=== PATIENT | male | born 1965 | race Hispanic/Latino ===

== ENCOUNTER 2020-12-16 07:47 | Outpatient (CLI) | payer OTHER ==
[2020-12-16] MEDS ORDERED: FUROSEMIDE 20 MG/2 ML INJ ONE (08:22)
[2020-12-16] MEDS ORDERED: FUROSEMIDE 20 MG/2 ML INJ IV ONE (08:57)
--- NOTE | 2020-12-16 10:24 | Cat Scan Report ---
CT ABDOMEN AND PELVIS WITHOUT CONTRAST INDICATION / CLINICAL INFORMATION: CALCULUS OF KIDNEY. TECHNIQUE: Axial CT images were obtained through the abdomen and pelvis without IV contrast. Sagittal and merino l reformatted images. All CT scans at this location are performed using CT dose reduction for ALARA b y means of automated exposure control. COMPARISON: None available. FINDINGS: LOWER CHEST: No significant abnormality. LIVER: No significant abnormality. GALLBLADDER: No significant abnormality. BILE DUCTS: No significant abnormality. PANCREAS: No significant abnormality. SPLEEN: No significant abnormality. ADRENALS: No significant abnormality. RIGHT KIDNEY and URETER: There is a large stone in the right renal pelvis measuring up to 2.7 x 1.9 x 3.1 cm. This results in moderate pyelocaliectasis in the right kidney. A 2 cm calyceal stone is note d near mid pole. There are 2 calyceal stones in the inferior right kidney measuring 1.0 cm and 1.2 cm . There is moderate urothelial thickening in the right renal pelvis and proximal right ureter. Distal ureteral stones are identified. The right kidney is normal size and cortical thickness. A few tiny c ysts are suspected. LEFT KIDNEY and URETER: There is a large stone in the left renal pelvis measuring 3.1 x 2.7 x 1.7 cm. No significant left pyelocaliectasis. There is a large calyceal stone at the superior pole measuring up to 3 cm. There are 5 additional stones in the mid to inferior left kidney measuring from 1 mm to 7 mm. No distal ureteral stones. 1 cm exophytic cyst is noted in the mid left kidney. STOMACH and SMALL BOWEL: No significant abnormality. COLON: No significant abnormality. APPENDIX: No significant abnormality. PERITONEUM: No free fluid. No free air. No fluid collection. LYMPH NODES: No significant adenopathy. AORTA and ARTERIES: No significant abnormality. IVC and VEINS: No significant abnormality. URINARY BLADDER: No significant abnormality. REPRODUCTIVE ORGANS: No significant abnormality. ADDITIONAL FINDINGS: None. SKELETAL SYSTEM: No significant abnormality. IMPRESSION: Bilateral nephrolithiasis as outlined above. Mild to moderate pyelocaliectasis is identified in the r ight kidney. Signer Name: Jim Valenzuela Jr, MD Signed: 12/16/2020 10:19 AM Workstation Name: [id number]
--- NOTE | 2020-12-16 13:13 | Nuclear Medicine Report ---
Renal Scan HISTORY: CALCULUS OF KIDNEY. TECHNIQUE: Patient was given 5.1 mCi of technetium MAG3. The patient was also given 20 mg of Lasix I V 22 minutes into the exam. COMPARISON: CT abdomen/pelvis from today FINDINGS: There is prompt renal parenchymal radiotracer uptake in both kidneys with bilateral retent ion noted, greater on the left. Split function was 57% on the left and 43% on the right. The ERPF was not available on this exam. Time/activity curve for the left kidney has a normal appearance and the time from Lasix injection to half Lasix was 7 on the left (normal) and 20 on the right (abnormal). IMPRESSION: Findings compatible with obstruction on the right with slightly diminished function but again ERPF was not available on this exam. Signer Name: Tera Burton MD Signed: 12/16/2020 1:09 PM Workstation Name: [id number]
== END 2020-12-16 07:48 | disposition home or self-care (01) ==
LOC: CT 07:47
PROVIDERS: ATTEND Urology
DX: N20.0 Calculus of kidney (principal); E78.5 Hyperlipidemia, unspecified; G43.109 Migraine with aura, not intractable, without status migrainosus
CPT/HCPCS: 74176; 78708; A9562; J1940

== ENCOUNTER 2021-05-06 06:48 | Day surgery (SDC) | payer OTHER ==
[2021-05-06] MEDS ORDERED: SODIUM CHLORIDE 0.9% 500 ML 500 ML IV SCH (08:00)
[2021-05-06] MEDS ORDERED: SODIUM CHLORIDE IRRI 500 ML 500 ML IR ONE (09:04)
--- NOTE | 2021-05-06 09:07 | Short Stay Summary ---
Short Stay Documentation Date of service: 05/06/21 - History Principal diagnosis: Bilateral nephrolithiasis Past Medical History: other (Bilateral staghorn calculi, right hydronephrosis) Social history: no significant social history - Allergies and Medications Current Medications: Allergies No Known Allergies Allergy (Verified 02/06/15 13:25) Home Medications Medication Instructions Recorded Confirmed Last Taken Type Apixaban [Eliquis] 5 mg PO BID 05/03/21 05/06/21 04/29/21 History 5 mg Aspirin 81 mg PO QDAY 05/03/21 05/06/21 05/04/21 History 81 mg Atorvastatin [Lipitor Tab] 80 mg PO QHS 05/03/21 05/06/21 05/05/21 History 80 mg Escitalopram [Lexapro] 10 mg PO DAILY 05/03/21 05/06/21 05/05/21 History 10 mg Multivit-Min/FA/Lycopen/Lutein 1 each PO DAILY 05/03/21 05/06/21 05/06/21 History [Centrum Silver Tablet] 1 tab Tamsulosin [Flomax] 0.4 mg PO QDAY 05/03/21 05/06/21 05/05/21 History 0.4mg carvediloL [Coreg] 6.25 mg PO BID 05/03/21 05/06/21 05/06/21 History 6.25mg metFORMIN [Glucophage] 500 mg PO QDAY 05/03/21 05/06/21 05/05/21 History 500 mg Eszopiclone [Lunesta] 3 mg PO QHS 05/05/21 05/06/21 05/05/21 History 3 mg amLODIPine 10 mg PO DAILY 05/06/21 05/06/21 05/06/21 06:00 History 10 mg Active Medications Sodium Chloride (Nacl 0.9% 500 Ml) 500 mls @ 50 mls/hr IV DIRECT MERLE Last Admin: 05/06/21 08:37 Dose: 50 mls/hr Documented by: Levofloxacin/Dextrose (Levaquin 500mg/100ml) 500 mg in 100 mls @ 100 mls/hr IV PREOP NR; Protocol Stop: 05/06/21 18:00 - Physical exam General appearance: no acute distress Integumentary: no rash, no growths HEENT: Atraumatic Lungs: Normal air movement Heart: Regular rate Gastrointestinal: normal Male Genitourinary: deferred Rectal Exam: deferred - Brief post op/procedure progress note Date of procedure: 05/06/21 Pre-op diagnosis: Bilateral nephrolithiasis Post-op diagnosis: same Procedure: Right nephroureteral tube placement using ultrasound and fluoroscopic guidance Anesthesia: local Surgeon: MICHELINE JOSHI Estimated blood loss: none Condition: stable - Disposition Condition at discharge: Good Disposition: DC-01 TO HOME OR SELFCARE Short Stay Discharge Plan Activity: advance as tolerated Weight Bearing Status: Weight Bear as Tolerated Diet: regular Wound: keep clean and dry, per your surgeon's advice Follow up with: RENEE FOSTER MD [Primary Care Provider] - 7 Days
[2021-05-06] MEDS: MIDAZOLAM 2 MG/2 ML INJ ONE ×2 (09:35→09:45)
[2021-05-06] MEDS: fentaNYL 100 MCG/2 ML INJ ONE ×2 (09:35→09:45)
[2021-05-06] MEDS: LIDOCAINE (2%) 20 MG/1 ML VIAL 20 ML MDV INFILTRATI ONE ×2 (09:35→09:47)
--- NOTE | 2021-05-06 10:11 | Operative Report ---
Operative Report Operative Report: Exam: Ultrasound and fluoroscopic guided placement of right nephroureteral tube Clinical indication: Patient with a history of bilateral renal calculi, right hydronephrosis Date: 05/06/2021 Procedure: Following an explanation of the risks, benefits and alternatives; written informed consent was obtained. The patient was brought to the angiographic suite and placed in prone position on the examination table. Initial ultrasound of his right back demonstrated moderate right hydronephrosis. The patient's right back and flank was prepped and draped in the usual sterile fashion. 1% lidocaine was used for anesthesia. Under ultrasound guidance, a 15 cm 21-gauge needle was advanced into a posterior superior calyx of the right kidney. A 0.018 guidewire was then advanced through the needle which demonstrated movement of the calyceal stones. The guidewire was advanced into the region of the renal pelvis and the inner portion of an AccuStick transition dilator placed over the guidewire. Contrast was gently injected which demonstrated appropriate positioning. The 0.018 guidewire was reinserted and the AccuStick reassembled and advanced over the guidewire to position the tip of the AccuStick in the renal pelvis. The guidewire and trocar were removed. Contrast was again injected which demonstrates appropriate positioning and opacification of the proximal ureter. A 0.035 Glidewire was then advanced through the AccuStick transition dilator and manipulated under fluoroscopy to the bladder. The guidewire was coiled within the bladder and the transition dilator removed and a 5 Slovenian pigtail catheter advanced over the guidewire. The pigtail was advanced to the bladder. The guidewire was removed. Contrast was injected through the pigtail catheter which demonstrated appropriate intraluminal positioning within the bladder. The catheter was securely fastened to the skin surface using 2-0 Ethilon suture and capped. The catheter was then coiled and sterile dressings were applied. The patient tolerated the procedure well. There were no immediate postprocedure complications. Conscious sedation was performed under the guidance of radiologic nursing. Continuous cardiopulmonary monitoring was utilized. Impression: Ultrasound and fluoroscopic guided placement of right nephroureteral tube in preparation for patient's laser lithotripsy on Monday.
[2021-05-06 13:28] VITALS: BP 128/77
[2021-05-06] MEDS ORDERED: oxyCODONE /ACETAMINOPHEN 5-325MG TAB PO ONE (13:41)
== END 2021-05-06 13:45 | disposition home or self-care (01) ==
LOC: CATHLABREC 06:48
PROVIDERS: ATTEND Radiology Diagnostic Radiology
DX: N13.2 Hydronephrosis with renal and ureteral calculous obstruction (principal); G43.109 Migraine with aura, not intractable, without status migrainosus; E78.5 Hyperlipidemia, unspecified; Z79.899 Other long term (current) drug therapy; Z79.84 Long term (current) use of oral hypoglycemic drugs; Z79.82 Long term (current) use of aspirin; Z87.440 Personal history of urinary (tract) infections; Z98.890 Other specified postprocedural states; Z82.49 Family history of ischemic heart disease and other diseases of the circulatory system
CPT/HCPCS: 50433; 82962; 99156; C1769; J1956; J2250; J3010; J7040; Q9967

== ENCOUNTER 2021-05-10 06:54 | Observation (INO) | payer OTHER ==
[2021-05-05 10:02] LABS: Hematocrit 38.4 % (35.5-45.6); Hemoglobin 13.1 gm/dl (11.8-15.2); Mean Corpuscular HGB Conc 34 % (32-34); Mean Corpuscular Volume 81 fl (84-94); Platelet Count 218 K/mm3 (140-440); Red Blood Count 4.74 M/mm3 (3.65-5.03); Red Cell Distribution Width 14.6 % (13.2-15.2)
--- NOTE | 2021-05-05 10:20 | Anesthesia Consultation ---
Anesthesia Consult and Med Hx Date of service: 05/05/21 - Airway Anesthetic Teeth Evaluation: Good ROM Head & Neck: Adequate Mental/Hyoid Distance: Adequate Mallampati Class: Class III Intubation Access Assessment: Possibly Difficult - Pulmonary Exam CTA: Yes - Cardiac Exam Cardiac Exam: RRR - Pre-Operative Health Status ASA Pre-Surgery Classification: ASA3 Proposed Anesthetic Plan: General - Pulmonary Hx Smoking: No Hx Respiratory Symptoms: No Hx Sleep Apnea: No (KARL PRE SCREEN HIGH RISK) - Cardiovascular System Hx Hypertension: Yes Hx Heart Attack/AMI: No Hx Percutaneous Transluminal Coronary Angioplasty (PTCA): No Hx Cardia Arrhythmia: No - Central Nervous System 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 States that he has had preop hematology eval; records not currently available for review. Neprhostomy tube placement scheduled for 05/06/21.
[2021-05-05 10:23] LABS: INR 0.93 (0.87-1.13)
[2021-05-05 10:24] LABS: Partial Thromboplastin Time 25.2 Sec. (24.2-36.6)
[2021-05-05 10:26] LABS: Alanine Aminotransferase 20 units/L (7-56); Albumin 4.1 g/dL (3.9-5); Blood Urea Nitrogen 14 mg/dL (9-20); Calcium 10.3 mg/dL (8.4-10.2); Hemolysis Index 15
[2021-05-05 11:07] LABS: BUN/Creatinine Ratio 20
[~2021-05-10 06:54] MED LIST: ACETAMINOPHEN 500 MG TAB PO SCH; GABAPENTIN 300 MG CAP PO NR; LACTATED RINGERS 1,000 ML IV SCH; MIDAZOLAM 2 MG/2 ML INJ IV NR; SCOPOLAMINE TRANSDERMAL PATCH 72 HR TD NR
[2021-05-10] MEDS ORDERED: ONDANSETRON 4 MG/2 ML INJ IV PRN ×2 (08:25→14:30)
[2021-05-10] MEDS ORDERED: HYDROmorphone 1 MG/1 ML INJ IV PRN ×2 (08:25)
--- NOTE | 2021-05-10 08:25 | Anesthesia Day of Surgery ---
Anesthesia Day of Surgery - Day of Surgery Patient Examined: Yes Patient H&P Reviewed: Yes Patient is NPO: Yes
[2021-05-10] MEDS ORDERED: ACETAMINOPHEN IV 1,000 MG/100 ML BOTTLE IV NR (09:15)
[2021-05-10] MEDS ORDERED: MINERAL OIL Light (Sterile) 10 ML VIAL TP ONE ×2 (09:16→11:52)
[2021-05-10] MEDS ORDERED: SODIUM CHLORIDE 0.9% 500 ML 500 ML IV ONE (10:00)
[2021-05-10] MEDS ORDERED: SODIUM CHLORIDE 0.9% IRRIG SOLN 2000 ML IR ONE (11:52)
[2021-05-10] MEDS ORDERED: IOHEXOL 300 MG/ML 50ML IV ONE (11:52)
[2021-05-10] MEDS ORDERED: GLYCOPYRROLATE 0.4 MG/2 ML INJ ONE (12:30)
[2021-05-10] MEDS ORDERED: NEOSTIGMINE 10MG/10 ML INJ MDV ONE (12:30)
[2021-05-10] MEDS ORDERED: NALOXONE 0.4 MG/1 ML INJ IV PRN (13:21)
[2021-05-10] MEDS ORDERED: oxyCODONE /ACETAMINOPHEN 5-325MG TAB PO PRN (13:21)
[2021-05-10] MEDS ORDERED: ACETAMINOPHEN 325 MG TAB PO PRN ×2 (13:21→14:30)
[2021-05-10] MEDS ORDERED: ONDANSETRON 4 MG ODT TAB PO PRN (13:21)
--- NOTE | 2021-05-10 13:21 | Post Operative Note ---
Pre-op diagnosis: stones Post-op diagnosis: same Findings: huge stones Procedure: r perc neph Anesthesia: GETA Surgeon: PPEE HARRIS Estimated blood loss: minimal Pathology: list (stones) Specimen disposition: given to patient/family Condition: stable Disposition: PACU
[2021-05-10] MEDS ORDERED: D5W/0.45% NACL/KCL 20 MEQ 20 MEQ/1,000 ML BAG IV SCH (14:00)
--- NOTE | 2021-05-10 14:47 | Fluoroscopy Report ---
FLUOROSCOPY NEPHROSTOGRAM EXISTING RIGHT HISTORY: Nephrolithiasis FINDINGS: 75 seconds of fluoroscopy time was provided by radiology during right percutaneous nephrost coleman performed by urology. 3 fluoroscopic images are presented. Please correlate with the operative re port as needed. Signer Name: Jim Valenzuela Jr, MD Signed: 05/10/2021 2:43 PM Workstation Name: [id number]
[2021-05-10] MEDS: ceFAZolin/NS 1 GM/50 ML 1 GM/50 ML BAG IV SCH (17:04)
--- NOTE | 2021-05-10 19:54 | Post Anesthesia Evaluation ---
- Post Anesthesia Evaluation Patient Participated: Yes Airway Patent: Yes Stable Respiratory Function: Yes Nausea/Vomiting: No Temp > 96.8F: Yes Pain Manageable: Yes Adequeate Hydration: Yes Anesthesia Complications: No Block Receding Appropriately: Not Applicable Patient on Ventilator: No
[2021-05-10 19:57] LABS: Blood Urea Nitrogen 8 mg/dL (9-20); Calcium 9.5 mg/dL (8.4-10.2); Hemolysis Index 15
[2021-05-10 20:10] LABS: BUN/Creatinine Ratio 11
[2021-05-10 20:14] LABS: Hematocrit 39.6 % (35.5-45.6); Hemoglobin 13.3 gm/dl (11.8-15.2); Mean Corpuscular HGB Conc 34 % (32-34); Mean Corpuscular Volume 81 fl (84-94); Platelet Count 218 K/mm3 (140-440); Red Blood Count 4.87 M/mm3 (3.65-5.03); Red Cell Distribution Width 14.8 % (13.2-15.2)
[2021-05-10] MEDS: FAMOTIDINE 20 MG/2 ML INJ IV SCH (22:00)
[2021-05-10] MEDS: oxyCODONE /ACETAMINOPHEN 5-325MG TAB PO PRN (23:24)
--- NOTE | 2021-05-11 00:25 | Operative Report ---
DATE OF SURGERY: 05/10/2021 PREOPERATIVE DIAGNOSES: Huge bilateral stones, renal insufficiency. POSTOPERATIVE DIAGNOSES: Huge bilateral stones, renal insufficiency. PROCEDURE: Right percutaneous nephrolithotomy. SURGEON: Nir Brannon MD. ANESTHESIA: General. FINDINGS: This is a gentleman with huge stones bilaterally, less functionality on the left side, now presents for treatment. DESCRIPTION OF PROCEDURE: The patient was brought to the operating room and placed on the operating table. Following induction of anesthesia, Silveira catheter was placed, placed in the prone position, prepped and draped in usual sterile fashion. Over the wire, an Amplatz wire was placed through the nephroureteral stent. This was initially opened up a little bit with a knife and a hemostat and then we placed the snake under fluoroscopic guidance. A safety wire set was placed and a second wire was secured in the bladder. At this point, we dilated to 16-Sami and it was a straight shot, so we used the balloon to 30-Sami. We placed a 28 Amplatz without difficulty after dilating it up to 30. Flexible nephroscopy showed the stone and using the nephroscope, we broke it into many, many pieces. Initially, the ultrasound did not work and when we got it working, we were able to suction out most of the little gravel. The patient tolerated the procedure well. A [place] catheter was placed at the UPJ. We did not inflate the balloon. We secured it with 2 silk. The wire was then placed. The patient tolerated the procedure well, no significant complications. Minimal blood loss, brought to recovery in stable condition. TID: [id number] RECEIPT: [id number] GIOVANNA/ABEBE/MANOHAR
[2021-05-11] MEDS: ceFAZolin/NS 1 GM/50 ML 1 GM/50 ML BAG IV SCH ×2 (04:12→06:00)
[2021-05-11] MEDS: oxyCODONE /ACETAMINOPHEN 5-325MG TAB PO PRN (07:53)
[2021-05-11] MEDS: FAMOTIDINE 20 MG/2 ML INJ IV SCH (10:46)
[2021-05-11 11:34] VITALS: BP 149/86
--- NOTE | 2021-05-11 12:57 | Progress Note ---
Assessment and Plan wire out tube clear 'looks grat mckeon out Subjective Date of service: 05/11/21 Principal diagnosis: stones Objective - Constitutional Vitals: Vital Signs - 12hr 05/11/21 05/11/21 05/11/21 03:52 05:03 07:53 Temperature 99.1 F Pulse Rate 99 H Respiratory 18 17 Rate Blood Pressure 117/72 O2 Sat by Pulse 97 91 Oximetry 05/11/21 05/11/21 05/11/21 08:33 09:40 11:07 Temperature 97.9 F 98.5 F Pulse Rate 82 86 Respiratory 18 18 Rate Blood Pressure 133/79 149/86 O2 Sat by Pulse 92 92 92 Oximetry General appearance: Present: other - Neck Neck: supple - Respiratory Respiratory effort: normal - Cardiovascular Rhythm: regular Extremities: no ischemia - Gastrointestinal General gastrointestinal: Present: soft, non-tender - Labs CBC & Chem 7: 05/10/21 19:31 05/10/21 19:31 Labs: Abnormal lab results 05/10/21 05/10/21 05/10/21 Range/Units 08:30 19:31 19:31 MCV 81 L (84-94) fl MCH 27 L (28-32) pg BUN 8 L (9-20) mg/dL Creatinine 0.7 L (0.8-1.3) mg/dL Glucose 145 H (75-100) mg/dL POC Glucose (70-105) mg/dL Crossmatch See Detail 05/11/21 05/11/21 Range/Units 08:31 11:06 MCV (84-94) fl MCH (28-32) pg BUN (9-20) mg/dL Creatinine (0.8-1.3) mg/dL Glucose (75-100) mg/dL POC Glucose 177 H 160 H (70-105) mg/dL Crossmatch Medications & Allergies - Medications Allergies/Adverse Reactions: Allergies No Known Allergies Allergy (Verified 02/06/15 13:25) Home Medications: Home Medications Medication Instructions Recorded Confirmed Last Taken Type Apixaban [Eliquis] 5 mg PO BID 05/03/21 05/10/21 04/30/21 09:00 History Aspirin 81 mg PO QDAY 05/03/21 05/10/21 05/05/21 09:00 History Atorvastatin [Lipitor Tab] 80 mg PO QHS 0705/10/21 05/09/21 20:00 History Escitalopram [Lexapro] 10 mg PO DAILY 05/03/21 05/10/21 05/09/21 09:00 History Multivit-Min/FA/Lycopen/Lutein 1 each PO DAILY 05/03/21 05/06/21 05/06/21 History [Centrum Silver Tablet] 1 tab Tamsulosin [Flomax] 0.4 mg PO QDAY 05/03/21 05/10/21 05/09/21 09:00 History carvediloL [Coreg] 6.25 mg PO BID 05/03/21 05/10/21 05/10/21 05:00 History metFORMIN [Glucophage] 500 mg PO QDAY 05/03/21 05/10/21 05/09/21 09:00 History Eszopiclone [Lunesta] 3 mg PO QHS 05/05/21 05/06/21 05/05/21 History 3 mg levoFLOXacin [Levaquin TAB] 500 mg PO QDAY #7 tablet 05/06/21 Unknown Rx oxyCODONE /ACETAMINOPHEN [Percocet 1 tab PO Q6HR PRN #25 tablet 05/06/21 Unknown Rx 5/325] amLODIPine 10 mg PO DAILY 05/10/21 05/10/21 05/09/21 09:00 History Active Medications: Generic Name Dose Route Start Last Admin Trade Name Freq PRN Reason Stop Dose Admin Acetaminophen 650 mg 05/10/21 14:30 Acetaminophen 325 Mg Tab PO Q4H PRN Pain MILD(1-3)/Fever >100.5/LERNER Famotidine 20 mg 05/10/21 22:00 05/11/21 10:46 Famotidine 20 Mg/2 Ml Inj IV 20 mg BID MERLE Administration Potassium Chloride/Dextrose/Sod Cl 20 meq in 1,000 mls @ 125 mls/hr 05/10/21 14:00 D5w/0.45% Nacl/Kcl 20 Meq IV DIRECT MERLE Cefazolin Sodium 1 gm in 50 mls @ 100 mls/hr 05/10/21 14:00 05/11/21 06:00 Ancef/Ns 1 Gm/50 Ml IV 05/11/21 14:29 Not Given Q8H MERLE Protocol Naloxone HCl 0.1 mg 05/10/21 13:21 Naloxone 0.4 Mg/1 Ml Inj IV Q2MIN PRN Res Rate </= 8 or 02 SAT < 92% Ondansetron HCl 4 mg 05/10/21 13:21 Ondansetron 4 Mg Odt Tab PO Q8H PRN Nausea And Vomiting Ondansetron HCl 4 mg 05/10/21 14:30 Ondansetron 4 Mg/2 Ml Inj IV Q8H PRN Nausea And Vomiting Oxycodone/Acetaminophen 1 tab 05/10/21 14:30 05/11/21 07:53 Oxycodone /Acetaminophen 5-325mg Tab PO 1 tab Q6H PRN Administration Pain, Moderate (4-6) Sodium Chloride 10 ml 05/10/21 22:00 05/11/21 10:48 Sodium Chloride 0.9% 10 Ml Flush Syringe IV 10 ml BID MERLE Administration Sodium Chloride 10 ml 05/10/21 14:09 Sodium Chloride 0.9% 10 Ml Flush Syringe IV PRN PRN LINE FLUSH
--- NOTE | 2021-05-11 12:59 | Discharge Summary ---
Short Stay Discharge Plan Activity: other (no straining ) Weight Bearing Status: Full Weight Bearing Diet: low fat, low cholesterol Wound: change dressing Special Instructions: other (neph tube care ) Durable Medical Equipment Needed Upon Discharge: other (as above) Follow up with: RENEE FOSTER MD [Primary Care Provider] - 7 Days PEPE HARRIS MD [Staff Physician] - 14 Days
== END 2021-05-11 17:00 | disposition home or self-care (01) ==
LOC: OR 06:54 → 3A 14:09 → 3B-SURG 20:01
PROVIDERS: ADMIT Urology; ATTEND Urology
DX: N20.0 Calculus of kidney (principal); I10 Essential (primary) hypertension; E11.9 Type 2 diabetes mellitus without complications; E78.00 Pure hypercholesterolemia, unspecified; G43.909 Migraine, unspecified, not intractable, without status migrainosus; G47.33 Obstructive sleep apnea (adult) (pediatric); Z79.82 Long term (current) use of aspirin; Z79.84 Long term (current) use of oral hypoglycemic drugs; Z87.440 Personal history of urinary (tract) infections; Z79.899 Other long term (current) drug therapy; Z98.890 Other specified postprocedural states
CPT/HCPCS: 36415; 50081; 50431; 80048; 80053; 82962; 85025; 85027; 85610; 85730; 86850; 86900; 86901; 86920; 96365; 96366; 96375; 96376; A4217; C1726; C1769; G0378; J0690; J2710; Q9967

== ENCOUNTER 2021-05-26 11:12 | Day surgery (SDC) | payer OTHER ==
[2021-05-26] MEDS ORDERED: MINERAL OIL Light (Sterile) 10 ML VIAL TP ONE (12:34)
[2021-05-26] MEDS ORDERED: HYDROmorphone 1 MG/1 ML INJ IV PRN ×2 (13:00)
[2021-05-26] MEDS ORDERED: MIDAZOLAM 2 MG/2 ML INJ IV NR (13:00)
[2021-05-26] MEDS ORDERED: LACTATED RINGERS 1,000 ML IV SCH (13:00)
[2021-05-26] MEDS ORDERED: ONDANSETRON 4 MG/2 ML INJ IV PRN (13:00)
--- NOTE | 2021-05-26 13:01 | Anesthesia Day of Surgery ---
Anesthesia Day of Surgery - Day of Surgery Patient Examined: Yes Patient H&P Reviewed: Yes Patient is NPO: Yes
--- NOTE | 2021-05-26 13:04 | Anesthesia Consultation ---
Anesthesia Consult and Med Hx Date of service: 05/26/21 - Airway Anesthetic Teeth Evaluation: Good ROM Head & Neck: Adequate Mental/Hyoid Distance: Adequate Mallampati Class: Class III Intubation Access Assessment: Probably Good - Pre-Operative Health Status ASA Pre-Surgery Classification: ASA3 Proposed Anesthetic Plan: General - Pulmonary Hx Smoking: No Hx Asthma: No Hx Respiratory Symptoms: No COPD: No Hx Pneumonia: No Hx Sleep Apnea: No (KARL PRE SCREEN HIGH RISK) - Cardiovascular System Hx Hypertension: Yes Hx Coronary Artery Disease: No Hx Heart Attack/AMI: No Hx Angina: No Hx Percutaneous Transluminal Coronary Angioplasty (PTCA): No Hx Cardia Arrhythmia: No Hx Pacemaker: No Hx Valvular Heart Disease: No Hx Heart Murmur: No Hx Peripheral Vascular Disease: No - Central Nervous System CVA: 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 H factor V leiden currently on Eliquis and ASA. States that he has had preop hematology eval.
[2021-05-26] MEDS ORDERED: propofoL 200 MG/20 ML VIAL IV ONE ×2 (13:38→14:26)
[2021-05-26] MEDS ORDERED: LIDOCAINE MPF (2%) 20 MG/1 ML VIAL 5 ML ONE (13:38)
[2021-05-26] MEDS ORDERED: ROCURONIUM 50 MG/5 ML INJ IV ONE (13:38)
[2021-05-26] MEDS ORDERED: fentaNYL 100 MCG/2 ML INJ ONE ×2 (13:39→14:30)
[2021-05-26] MEDS ORDERED: ceFAZolin/Water 2 GM/20 ML 2 GM/20 ML SYRINGE IV ONE (13:41)
[2021-05-26] MEDS ORDERED: ceFAZolin/STERILE WATER 2 GM/20 ML SYRINGE IV NR (14:00)
[2021-05-26] MEDS ORDERED: ePHEDrine SULFATE 50 MG/1 ML INJ ONE (14:22)
[2021-05-26] MEDS ORDERED: LIDOCAINE PF 100 MG/5 ML (CARDIAC SYRINGE) IV ONE (14:25)
[2021-05-26] MEDS ORDERED: IOHEXOL 300 MG/ML 50ML IV ONE (14:41)
[2021-05-26] MEDS ORDERED: WATER FOR IRRIG STERILE 1,500 ML BOTTLE IR ONE (14:41)
[2021-05-26] MEDS ORDERED: WATER FOR IRRIG STERILE 2000 ML IR ONE (14:41)
[2021-05-26] MEDS ORDERED: dexAMETHasone 20 MG/5 ML VIAL ONE (14:54)
[2021-05-26] MEDS ORDERED: ONDANSETRON 4 MG/2 ML INJ ONE (14:54)
[2021-05-26] MEDS ORDERED: GLYCOPYRROLATE 0.4 MG/2 ML INJ ONE (14:54)
[2021-05-26] MEDS ORDERED: NEOSTIGMINE 10MG/10 ML INJ MDV ONE (14:54)
[2021-05-26] MEDS ORDERED: FUROSEMIDE 40 MG/4 ML INJ ONE (15:24)
--- NOTE | 2021-05-26 15:28 | Post Operative Note ---
Date of procedure: 05/26/21 Pre-op diagnosis: huge bilat stones Post-op diagnosis: same Findings: as above Procedure: second stage r perc Anesthesia: GETA Surgeon: PEPE HARRIS Estimated blood loss: minimal Pathology: list (stones) Specimen disposition: to lab Condition: stable Disposition: PACU
--- NOTE | 2021-05-26 15:30 | Discharge Summary ---
Short Stay Discharge Plan Activity: other (no strainingv ) Weight Bearing Status: Full Weight Bearing Diet: low fat, low cholesterol Wound: change dressing Special Instructions: other (perc tube plugged ) Follow up with: RENEE FOSTER MD [Primary Care Provider] - 7 Days PEPE HARRIS MD [Staff Physician] - 7 Days
--- NOTE | 2021-05-26 15:56 | Operative Report ---
DATE OF SURGERY: 05/26/2021 PREOPERATIVE DIAGNOSIS: Huge bilateral renal stone burden. POSTOPERATIVE DIAGNOSIS: Huge bilateral renal stone burden. PROCEDURE: Second-stage percutaneous nephrolithotomy. SURGEON: Nir Brannon MD ANESTHESIA: General. FINDINGS: This is a gentleman with huge stone burden bilaterally. Most of the stone was removed a couple of weeks ago, he now presents for second stage. DESCRIPTION OF PROCEDURE: The patient was brought to the operating room and placed on the operating table. Following induction of anesthesia, placed in the prone position, prepped and draped in the usual sterile fashion. Using the flexible scope, we found multiple upper ureteral stones, which were extracted and lasered. A wire was secured in the bladder. Then, we placed a double-J stent, which was 6-Bahamian coiled in the kidney. It looked like it went around the balloon. It was in the bladder. At this point, there were large stones that were extracted after lasering pieces. The patient tolerated the procedure well. He will be discharged after voiding. Silveira catheter will be removed. The nephrostomy tube is intact, secured and plugged. He was brought to recovery room with minimal blood loss in stable condition. TID: [id number] RECEIPT: [id number] GIOVANNA/ELIAN/CECE
--- NOTE | 2021-05-26 17:30 | Fluoroscopy Report ---
INTRAOPERATIVE FLUOROSCOPY: URETEROSCOPY, STENT PLACEMENT, STONE EXTRACTION INDICATION: RT KIDNEY STONES. TECHNIQUE: Intraoperative spot images were obtained during the procedure. FINDINGS: These images show access of the right renal collecting system percutaneously with injection of contra st followed by placement of a right ureteral stent. See procedure note for details. Fluoroscopy Time: 1.2 minutes. Fluoroscopy Images: 8. Signer Name: Albert Parnell MD Signed: 05/26/2021 5:26 PM Workstation Name: [id number]
[2021-05-26 18:10] VITALS: BP 146/73
== END 2021-05-26 17:15 | disposition home or self-care (01) ==
LOC: OR 11:12
PROVIDERS: ATTEND Urology
DX: N20.0 Calculus of kidney (principal); I10 Essential (primary) hypertension; E66.9 Obesity, unspecified; E78.5 Hyperlipidemia, unspecified; N39.0 Urinary tract infection, site not specified; G43.109 Migraine with aura, not intractable, without status migrainosus; Z79.82 Long term (current) use of aspirin; Z79.899 Other long term (current) drug therapy; Z98.890 Other specified postprocedural states
CPT/HCPCS: 50431; 52356; 82962; 86850; 86900; 86901; A4217; C1769; C2617; J0690; J1100; J1940; J2250; J2405; J2704; J2710; J3010; J7120; Q9967; J2001

== ENCOUNTER 2021-05-29 18:56 | Emergency (ER) | payer OTHER ==
[2021-05-30 02:18] VITALS: BP 150/86
== END 2021-05-30 02:52 | disposition home or self-care (01) ==
LOC: ED 18:56
DX: Z43.6 Encounter for attention to other artificial openings of urinary tract (principal); I10 Essential (primary) hypertension; E11.8 Type 2 diabetes mellitus with unspecified complications; Z87.442 Personal history of urinary calculi; G43.909 Migraine, unspecified, not intractable, without status migrainosus; E78.00 Pure hypercholesterolemia, unspecified; Z98.890 Other specified postprocedural states
CPT/HCPCS: 36415; 80053; 85025; 99283

== ENCOUNTER 2021-11-18 07:17 | Day surgery (SDC) | payer OTHER ==
[2021-11-18] MEDS ORDERED: SODIUM CHLORIDE 0.9% 500 ML 500 ML IV SCH (08:00)
[2021-11-18 08:05] LABS: Basophils % (Auto) 0.6 % (0.0-1.8); Eosinophils # (Auto) 0.2 K/mm3 (0.0-0.4); Eosinophils % (Auto) 3.1 % (0.0-4.3); Hematocrit 39.8 % (35.5-45.6); Hemoglobin 12.9 gm/dl (11.8-15.2); Lymphocytes # (Auto) 1.8 K/mm3 (1.2-5.4); Lymphocytes % (Auto) 28.5 % (13.4-35.0); Mean Corpuscular HGB Conc 33 % (32-34); Mean Corpuscular Volume 82 fl (84-94); Monocytes # (Auto) 0.5 K/mm3 (0.0-0.8); Monocytes % (Auto) 8.4 % (0.0-7.3); Platelet Count 203 K/mm3 (140-440); Red Blood Count 4.88 M/mm3 (3.65-5.03); Red Cell Distribution Width 13.8 % (13.2-15.2)
[2021-11-18 08:15] LABS: BUN/Creatinine Ratio 23; Blood Urea Nitrogen 18 mg/dL (9-20); Calcium 10.1 mg/dL (8.4-10.2); Hemolysis Index 21; INR 0.85 (0.87-1.13)
--- NOTE | 2021-11-18 08:43 | Short Stay Summary ---
Short Stay Documentation Date of service: 11/18/21 - History Principal diagnosis: Left flank pain, left nephrolithiasis, staghorn calculus Past Medical History: other (Prior right nephrolithiasis) Past Surgical History: Other (Right percutaneous laser lithotripsy) Social history: no significant social history - Allergies and Medications Current Medications: Allergies No Known Allergies Allergy (Verified 02/06/15 13:25) Home Medications Medication Instructions Recorded Confirmed Last Taken Type Apixaban [Eliquis] 5 mg PO BID 05/03/21 11/18/21 11/11/21 History 2 TABS Aspirin 81 mg PO QDAY 05/03/21 11/18/21 11/11/21 History 1 TAB Atorvastatin [Lipitor Tab] 80 mg PO QHS 05/03/21 11/18/21 11/17/21 History 1 TAB Escitalopram [Lexapro] 10 mg PO DAILY 05/03/21 11/18/21 11/17/21 History 1 TAB Multivit-Min/FA/Lycopen/Lutein 1 each PO DAILY 05/03/21 11/18/21 05/06/21 History [Centrum Silver Tablet] 1 tab Tamsulosin [Flomax] 0.4 mg PO QDAY 05/03/21 11/18/21 11/17/21 History 1 TAB carvediloL [Coreg] 6.25 mg PO BID 05/03/21 11/18/21 11/17/21 History 2 TABS metFORMIN [Glucophage] 500 mg PO BID 05/03/21 11/18/21 11/15/21 History 2 TABS Eszopiclone [Lunesta] 3 mg PO QHS 05/05/21 11/18/21 11/17/21 History 1 TAB amLODIPine 10 mg PO DAILY 05/10/21 11/18/21 05/09/21 09:00 History Losartan [Cozaar] 50 mg PO QDAY 05/25/21 11/18/21 11/17/21 History 1 TAB Active Medications Sodium Chloride (Nacl 0.9% 500 Ml) 500 mls @ 50 mls/hr IV DIRECT MERLE Stop: 11/18/21 20:00 - Physical exam General appearance: no acute distress Integumentary: no rash HEENT: Atraumatic Lungs: Normal air movement Breasts: deferred Heart: Regular rate Male Genitourinary: deferred Rectal Exam: deferred Neurological: Normal gait, Normal speech - Brief post op/procedure progress note Date of procedure: 11/18/21 Pre-op diagnosis: Left nephrolithiasis Post-op diagnosis: same Procedure: Placement of left nephroureteral stent using ultrasound and fluoroscopic guidance Anesthesia: local Surgeon: MICHELINE JOSHI Pathology: none Condition: stable - Disposition Condition at discharge: Good Disposition: 01 HOME / SELF CARE / HOMELESS Short Stay Discharge Plan Activity: advance as tolerated Weight Bearing Status: Weight Bear as Tolerated Diet: regular Wound: keep clean and dry, per your surgeon's advice Follow up with: RENEE FOSTER MD [Primary Care Provider] - 7 Days
[2021-11-18] MEDS ORDERED: SODIUM CHLORIDE IRRI 500 ML 500 ML IR ONE ×2 (08:56→10:30)
[2021-11-18] MEDS ORDERED: LIDOCAINE 1%/EPINEPHRINE 1:100,000 VIAL (20 ML) INFILTRATI ONE (08:58)
[2021-11-18] MEDS ORDERED: SODIUM CHLORIDE 0.9% 250ML 250 ML ONE (09:00)
--- NOTE | 2021-11-18 09:10 | Cat Scan Report ---
CT OF THE ABDOMEN AND PELVIS WITHOUT CONTRAST INDICATION / CLINICAL INFORMATION: Abdominal pain. TECHNIQUE: All CT scans at this location are performed using CT dose reduction for ALARA by means of automated exposure control. COMPARISON: 12/16/20. FINDINGS: ABDOMEN: There is a 2.3 cm ovoid calculus in the left renal pelvis which measures 1238 [address] ts. There is a 3.2 cm calculus in the upper pole of the left kidney which measures 15[address] un its. There are a few other small scattered left renal calculi. There is a 9 mm calculus in the lower pole of the right kidney. The left renal pelvis is extrarenal and mildly dilated without significant caliectasis. There is a mildly prominent extrarenal pelvis on the right. There is minimal caliectasis on the right, likely chronic. I do not identify a proximal ureteral calculus. There are small simple cyst-appearing renal lesions bilaterally. The liver, spleen, gallbladder, bile ducts, pancreas, adrenal glands and bowel demonstrate no signifi cant abnormality. There are moderate atherosclerotic calcifications involving the abdominal aorta and its branches without aneurysm. No adenopathy is seen. The lung bases are clear. PELVIS: There is a 7 mm mildly irregular calculus in the distal left ureter located a couple of centi meters above the ureterovesical junction. There is mild to moderate localized ureterectasis above the level of the calculus in the pelvis. The distal right ureter and urinary bladder are normal. The pro state gland and seminal vesicles are unremarkable. A normal appendix is present. There is no evidence of diverticulitis. No abnormal mass or fluid colle ction is seen. I do not identify a hernia. No acute osseous abnormality is seen. IMPRESSION: 1. 7 mm calculus in the distal left ureter is causing mild to moderate upstream ureterectasis. Large calculus in the left renal pelvis is not causing significant evidence of obstruction at this time, bu t could be a cause for intermittent or low grade obstruction. 2. Bilateral nonobstructive calculi, the largest of which measures 3.2 cm in the left upper pole. Signer Name: Irvin Jones MD Signed: 11/18/2021 9:06 AM Workstation Name: [employer]
[2021-11-18] MEDS ORDERED: LIDOCAINE (2%) 20 MG/1 ML VIAL 20 ML MDV INFILTRATI ONE (09:12)
[2021-11-18] MEDS: MIDAZOLAM 2 MG/2 ML INJ ONE ×2 (09:53→10:11)
[2021-11-18] MEDS: fentaNYL 100 MCG/2 ML INJ ONE ×3 (09:53→10:37)
[2021-11-18] MEDS ORDERED: MIDAZOLAM 2 MG/2 ML INJ ONE (10:41)
--- NOTE | 2021-11-18 11:13 | Operative Report ---
Operative Report Operative Report: Exam: Ultrasound and fluoroscopic guided placement of nephro ureteral tube Clinical indication: Patient with a history of left flank pain, large left pelvic nephrolithiasis with upper pole calyceal nephrolithiasis Date: 11/18/2021 Procedure: Following an explanation of the risks, benefits and alternatives; hunter smith informed consent was obtained. The patient was brought to the angiographic suite and placed in supine position on the examination table.. The patient's left back and flank were prepped and draped in the usual sterile fashion. 1% lidocaine was used for anesthesia. Initially, attempts to access the kidney were performed using ultrasound guidance however, the kidney is nondilated with a stone filling the pelvis. A decision was made to attempt to perform percutaneous access using fluoroscopic guidance directed towards the stone to opacify the calyces and allow a second puncture into a calyx. Ultimately, using a combination of fluoroscopic guidance and ultrasound guidance the kidney was punctured and contrast injected which opacified multiple calyces. There is also opacification of a superior calyx which extends towards the upper pole calyceal stone. With opacification of the middle calyx, fluoroscopic triangulated guidance was performed to advance a 15 cm 21-gauge needle into the calyx. A 0.018 guidewire was advanced through the calyx past the obstructing stone and coiled within the pelvis. The inner portion of the transition dilator was then placed over the guidewire and advanced and the guidewire and trocar removed. Contrast was injected which demonstrates appropriate positioning. The 018 guidewire was advanced through the dilator, coiled within the pelvis and the dilator removed and reassembled completely. The entire transition dilator was then placed over the guidewire and advanced to position the tip of the transition dilator within the renal pelvis. The trocar, and her portion and guidewire were removed. A 0.035 guidewire was advanced through the transition dilator into the ureter and ultimately to the bladder. At the ureterovesicular junction, 1/3 stone is identified nearly occluding the UVJ. The guidewire was advanced past the stone. The dilator was removed and a vertebral catheter advanced over the guidewire past the stone and contrast injected to document appropriate positioning within the bladder. The guidewire was exchanged for an advantage guidewire and the vertebral catheter removed. A 90 cm pigtail catheter was then advanced over the guidewire and positioned with the pigtail within the bladder and the catheter extending up the ureter past the stone out the middle calyx. Contrast was injected through the second access to document appropriate positioning in the second access removed. The catheter was securely fastened to the skin surface using 2-0 Ethilon suture. The catheter was then coiled and capped and a sterile dressing applied. The patient tolerated the procedure well. There were no immediate post procedure complications. Conscious sedation was performed under the guidance of radiologic nursing. Continuous cardiopulmonary monitoring was utilized. Impression: Ultrasound and fluoroscopic guided placement of nephroureteral tube in anticipation of percutaneous laser lithotripsy to be performed on Monday.
[2021-11-18] MEDS ORDERED: oxyCODONE /ACETAMINOPHEN 5-325MG TAB ONE (13:16)
[2021-11-18] MEDS ORDERED: oxyCODONE /ACETAMINOPHEN 5-325MG TAB PO ONE (14:00)
[2021-11-18 15:33] VITALS: BP 138/82
== END 2021-11-18 07:18 | disposition home or self-care (01) ==
LOC: CATHLABREC 07:17
PROVIDERS: ATTEND Radiology Diagnostic Radiology
DX: N20.0 Calculus of kidney (principal); G43.109 Migraine with aura, not intractable, without status migrainosus; I10 Essential (primary) hypertension; E78.5 Hyperlipidemia, unspecified; N39.0 Urinary tract infection, site not specified; M19.90 Unspecified osteoarthritis, unspecified site; F31.9 Bipolar disorder, unspecified; F41.9 Anxiety disorder, unspecified; Z98.890 Other specified postprocedural states; Z79.899 Other long term (current) drug therapy; Z79.82 Long term (current) use of aspirin; Z86.73 Personal history of transient ischemic attack (TIA), and cerebral infarction without residual deficits; Z82.49 Family history of ischemic heart disease and other diseases of the circulatory system
CPT/HCPCS: 36415; 50433; 74176; 80048; 85025; 85610; 99156; 99157; C1751; C1769; J1956; J2250; J3010; J3490; J7050; Q9967

== ENCOUNTER 2021-11-22 07:20 | Observation (INO) | payer OTHER ==
[2021-11-22] MEDS ORDERED: LACTATED RINGERS 1,000 ML ONE ×2 (08:07→12:29)
--- NOTE | 2021-11-22 08:51 | Anesthesia Day of Surgery ---
Anesthesia Day of Surgery - Day of Surgery Patient Examined: Yes Patient H&P Reviewed: Yes Patient is NPO: Yes Beta Blockers: Yes
--- NOTE | 2021-11-22 08:54 | Anesthesia Consultation ---
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,MEMORY DEFICIT) Hx Psychiatric Problems: Yes (EASY TO ANGER/AGITATION SINCE CVA/Anxiety/Bipolar) - Gastrointestinal Hx Ulcer: No Hx Gastroesophageal Reflux Disease: No - Endocrine Hx Renal Disease: No (renal stones) Hx End Stage Renal Disease: No Hx Cirrhosis: No Hx Liver Disease: No Hx Insulin Dependent Diabetes: No Hx Non-Insulin Dependent Diabetes: Yes Hx Thyroid Disease: No Hx Hypothyroidism: No Hx Hyperthyroidism: No - Hematic Hx Anemia: No - Other Systems Hx Alcohol Use: No Hx Cancer: No Hx Obesity: Yes (BMI 33) - Additional Comments Anesthesia Medical History Comments: Was here [id number] and [id number]. PMH factor V leiden currently on Eliquis and ASA. States that he has had preop hematology eval last year.
[2021-11-22] MEDS ORDERED: ceFAZolin/Water 2 GM/20 ML 2 GM/20 ML SYRINGE IV NR (09:00)
[2021-11-22] MEDS ORDERED: HYDROmorphone 1 MG/1 ML INJ IV PRN ×2 (09:00)
[2021-11-22] MEDS ORDERED: SODIUM CHLORIDE 0.9% 500 ML 500 ML IV SCH (09:00)
[2021-11-22] MEDS: LACTATED RINGERS 1,000 ML IV SCH ×2 (09:00→16:19)
[2021-11-22] MEDS ORDERED: ONDANSETRON 4 MG/2 ML INJ IV PRN (09:00)
[2021-11-22] MEDS ORDERED: propofoL 200 MG/20 ML VIAL IV ONE (10:08)
[2021-11-22] MEDS ORDERED: ROCURONIUM 50 MG/5 ML INJ IV ONE (10:08)
[2021-11-22] MEDS ORDERED: LIDOCAINE MPF (2%) 20 MG/1 ML VIAL 5 ML ONE (10:08)
[2021-11-22] MEDS ORDERED: fentaNYL 100 MCG/2 ML INJ ONE (10:08)
[2021-11-22] MEDS ORDERED: MINERAL OIL Light (Sterile) 10 ML VIAL TP ONE ×2 (10:37→11:48)
[2021-11-22] MEDS ORDERED: ePHEDrine SULFATE 50 MG/1 ML INJ ONE (11:16)
[2021-11-22] MEDS ORDERED: GLYCOPYRROLATE 0.4 MG/2 ML INJ ONE (12:20)
[2021-11-22] MEDS ORDERED: NEOSTIGMINE 10MG/10 ML INJ MDV ONE (12:20)
[2021-11-22] MEDS ORDERED: ONDANSETRON 4 MG/2 ML INJ ONE (12:20)
[2021-11-22] MEDS ORDERED: dexAMETHasone 20 MG/5 ML VIAL ONE (12:20)
[2021-11-22] MEDS ORDERED: SODIUM CHLORIDE 0.9% IRRIG SOLN 2000 ML IR ONE (12:30)
[2021-11-22] MEDS ORDERED: FUROSEMIDE 40 MG/4 ML INJ ONE (12:36)
--- NOTE | 2021-11-22 12:45 | Post Operative Note ---
Date of procedure: 11/22/21 Pre-op diagnosis: huge stones Post-op diagnosis: same Findings: asd above Procedure: left perc neph stent Anesthesia: GETA Surgeon: PEPE HARRIS Estimated blood loss: 50-100ml Pathology: list (stones) Specimen disposition: to lab Condition: stable Disposition: PACU
[2021-11-22] MEDS ORDERED: ACETAMINOPHEN 325 MG TAB PO PRN (14:00)
--- NOTE | 2021-11-22 15:00 | Operative Report ---
DATE OF SURGERY: 11/22/2021 PREOPERATIVE DIAGNOSIS: Huge bilateral staghorn. POSTOPERATIVE DIAGNOSIS: Huge bilateral staghorn PROCEDURES: Left percutaneous nephrolithotomy, left double-J stent. SURGEON: Dr. Nir Brannon. ANESTHESIA: General. FINDINGS: This is a gentleman who had a progressive hydronephrosis on the left and the most recent scan, he also has a distal stone in the left ureter. He has a huge stone at the left UPJ as well and was going to lose his kidney if we did not treat him. The right kidney looks amazing. DESCRIPTION OF PROCEDURE: The patient was brought to the operating room and placed on the operating table. Following induction of anesthesia, placed in the prone position, prepped and draped in usual sterile fashion after the Silveira was placed. He was prepped and we were ready for the percutaneous procedure. The patient was aware of all risks and implications as well as on the previous right side. A rigid Amplatz wire coiled in the bladder and we used the snake to place a safety wire in. The safety wire was secured. We started the dilator to 12, to 14, to 16 and even with the first dilator, there was some oozing from the nephrostomy tube tract. Likely, it was not such a simple procedure to place the access because of the huge sizes of the stone and getting by the stone. At this point, once we dilated to 18, we used the balloon. There was mild bleeding from the tract. Nothing that was not controlled with the dilators and we dilated up to 30-Slovak and ended up placing a 26 sheath. The entire tract and collecting system had lots of clots that had to be evacuated out. We can then start to see the stone. Using the ultrasound and lithoclast, we broke the stone into 100 of pieces and suctioned it out as best as possible. Again, this was a round clot. Finally, the stone was all broken up. There were some pieces, but there was so many clots that we decided to just come back on another day because we have to approach the distal stone in the ureter as well. A 5-Slovak stent coiled in the kidney and in the bladder. The nephrostogram showed large amount of fragments and clots in the renal pelvis was draining well. We put a plug in, we put the double-J and the patient tolerated the procedure well. Estimated blood loss about 100 mL. He was brought to recovery room with a double-J and a nephrostomy tube in stable condition. TID: [id number] RECEIPT: [id number] GIOVANNA/ESTEPHANIA
[2021-11-22] MEDS: traMADol 50 MG TAB PO PRN (16:18)
--- NOTE | 2021-11-22 17:21 | Fluoroscopy Report ---
INTRAOPERATIVE FLUOROSCOPY: ABDOMEN AND PELVIS INDICATION / CLINICAL INFORMATION: LT KIDNEY STONES. TECHNIQUE: Intraoperative spot images were obtained during the procedure. FINDINGS: Intraoperative images from left ureteral stent placement and stone ablation. Please refer to operative report for further information. Fluoroscopy Time: 2 minutes 53 seconds. Fluoroscopy Images: 7. Signer Name: Vu Grissom MD Signed: 11/22/2021 5:17 PM Workstation Name: [employer]
[2021-11-22 19:52] LABS: Hematocrit 37.8 % (35.5-45.6); Hemoglobin 12.4 gm/dl (11.8-15.2)
[2021-11-22] MEDS ORDERED: ZOLPIDEM 5 MG TAB PO PRN (22:00)
[2021-11-22] MEDS: INSULIN LISPRO 100 UNIT/ML SUB-Q SCH (22:23)
--- NOTE | 2021-11-23 05:40 | Consultation ---
History of Present Illness - Reason for Consult Consult date: 11/22/21 Medical management Requesting physician: PEPE HARRIS - History of Present Illness Patient is s/p left kidney stone removal. Patient is doing well postop. Patient complains of no urination for the last 6 hours prior to my seeing him. Informed nursing staff to put a straight cath. No fever or chills. Patient has a history of diabetes. S/p percutaneous nephrostomy and placement of left ur eteral stents. Past History Past Medical History: diabetes, hypertension, hyperlipidemia, other (BPH) Past Surgical History: Other (Left percutaneous nephrostomy) Social history: lives with family, full code Family history: diabetes, hypertension Medications and Allergies Allergies Allergy/AdvReac Type Severity Reaction Status Date / Time No Known Allergies Allergy Verified 02/06/15 13:25 Home Medications Medication Instructions Recorded Confirmed Last Taken Type Apixaban [Eliquis] 5 mg PO BID 05/03/21 11/18/21 11/11/21 History Aspirin 81 mg PO QDAY 05/03/21 11/18/21 11/11/21 History Atorvastatin [Lipitor Tab] 80 mg PO QHS 05/03/21 11/18/21 11/21/21 History Escitalopram [Lexapro] 10 mg PO DAILY 05/03/21 11/18/21 11/21/21 History Multivit-Min/FA/Lycopen/Lutein 1 each PO DAILY 05/03/21 11/18/21 05/06/21 History [Centrum Silver Tablet] 1 tab Tamsulosin [Flomax] 0.4 mg PO QDAY 05/03/21 11/18/21 11/21/21 History carvediloL [Coreg] 6.25 mg PO BID 05/03/21 11/18/21 11/21/21 History metFORMIN [Glucophage] 500 mg PO BID 05/03/21 11/22/21 11/20/21 History Eszopiclone [Lunesta] 3 mg PO QHS 05/05/21 11/18/21 11/21/21 History amLODIPine 10 mg PO DAILY 05/10/21 11/22/21 11/21/21 History Losartan [Cozaar] 50 mg PO QDAY 05/25/21 11/18/21 11/21/21 History oxyCODONE /ACETAMINOPHEN [Percocet 1 tab PO Q4HR PRN #30 tab 11/18/21 11/18/21 Unknown Rx 5/325] Active Meds: Active Medications Acetaminophen (Acetaminophen 325 Mg Tab) 650 mg PO Q4H PRN PRN Reason: Pain MILD(1-3)/Fever >100.5/LERNER Lactated Ringer's (Lactated Ringers) 1,000 mls @ 100 mls/hr IV DIRECT MERLE Last Admin: 11/22/21 16:19 Dose: 100 mls/hr Insulin Human Lispro (Insulin Lispro 100 Unit/Ml) 0 unit SUB-Q ACHS MERLE; Protocol Last Admin: 11/22/21 22:23 Dose: 4 unit Tramadol HCl (Tramadol 50 Mg Tab) 50 mg PO Q6H PRN PRN Reason: Pain, Moderate (4-6) Last Admin: 11/22/21 16:18 Dose: 50 mg Zolpidem Tartrate (Zolpidem 5 Mg Tab) 5 mg PO QHS PRN PRN Reason: Sleep Review of Systems All systems: negative Exam - Constitutional Vitals: Temp Pulse Resp BP Pulse Ox 97.6 F 90 16 154/94 95 11/23/21 04:53 11/23/21 04:53 11/23/21 04:53 11/23/21 04:53 11/23/21 04:53 General appearance: Present: no acute distress, well-nourished - EENT Eyes: Present: PERRL ENT: hearing intact, clear oral mucosa - Neck Neck: Present: supple, normal ROM - Respiratory Respiratory effort: normal Respiratory: bilateral: CTA - Cardiovascular Rhythm: regular Heart Sounds: Present: S1 & S2. Absent: rub, click - Extremities Extremities: pulses symmetrical, No edema Peripheral Pulses: within normal limits - Abdominal General gastrointestinal: Present: soft, non-tender, non-distended, normal bowel sounds Male genitourinary: Present: normal - Integumentary Integumentary: Present: clear, warm, dry - Musculoskeletal Musculoskeletal: gait normal, strength equal bilaterally - Psychiatric Psychiatric: appropriate mood/affect, intact judgment & insight - Neurologic Neurologic: CNII-XII intact, moves all extremities Results - Labs CBC & Chem 7: 11/22/21 19:39 Labs: Abnormal lab results 11/22/21 11/22/21 11/22/21 Range/Units 08:41 17:38 22:07 POC Glucose 196 H 220 H (70-105) mg/dL Crossmatch See Detail Assessment and Plan - Patient Problems (1) Renal calculus, left Current Visit: Yes Status: Acute Plan to address problem: S/p percutaneous nephrostomy and ureteral stent placement (2) Urinary retention Current Visit: Yes Status: Acute Plan to address problem: Nursing staff was asked to straight cath Postop effects (3) HLD (hyperlipidemia) Current Visit: No Status: Chronic Qualifiers: Hyperlipidemia type: mixed hyperlipidemia Qualified Code(s): E78.2 - Mixed hyperlipidemia Plan to address problem: Continue Lipitor (4) Hypertension Current Visit: Yes Status: Chronic Qualifiers: Hypertension type: primary hypertension Qualified Code(s): I10 - Essential (primary) hypertension Plan to address problem: Continue antihypertensives in the form of Coreg and amlodipine (5) T2DM (type 2 diabetes mellitus) Current Visit: Yes Status: Chronic Qualifiers: Diabetes mellitus prison insulin use: without watermaster use Plan to address problem: Continue Metformin and Accu-Cheks with coverage (6) BPH (benign prostatic hyperplasia) Current Visit: Yes Status: Chronic Qualifiers: Lower urinary tract symptom presence: symptoms present Plan to address problem: Continue Flomax (7) DVT prophylaxis Current Visit: Yes Status: Acute (8) DVT prophylaxis Current Visit: Yes Status: Acute Plan to address problem: Patient on SCDs and GI prophylaxis
[2021-11-23] MEDS: LACTATED RINGERS 1,000 ML IV SCH (06:01)
[2021-11-23] MEDS: traMADol 50 MG TAB PO PRN (06:02)
[2021-11-23] MEDS ORDERED: LOSARTAN 50 MG TAB PO SCH (10:00)
[2021-11-23] MEDS: ESCITALOPRAM 10 MG TAB PO SCH (10:23)
[2021-11-23] MEDS: INSULIN LISPRO 100 UNIT/ML SUB-Q SCH ×5 (10:24→21:19)
[2021-11-23] MEDS: amLODIPine 10 MG TAB PO SCH (10:24)
[2021-11-23] MEDS: TAMSULOSIN 0.4 MG CAP PO SCH (10:24)
[2021-11-23] MEDS: metFORMIN 500 MG TAB PO SCH ×2 (10:25→17:02)
[2021-11-23] MEDS: carvediloL 6.25 MG TAB PO SCH ×2 (10:26→17:02)
[2021-11-23] MEDS: oxyCODONE /ACETAMINOPHEN 5-325MG TAB PO PRN ×2 (10:42→18:55)
[2021-11-23 10:44] LABS: Basophils % (Auto) 0.3 % (0.0-1.8); Eosinophils # (Auto) 0.1 K/mm3 (0.0-0.4); Eosinophils % (Auto) 0.6 % (0.0-4.3); Hematocrit 37.1 % (35.5-45.6); Hemoglobin 12.1 gm/dl (11.8-15.2); Lymphocytes # (Auto) 2.1 K/mm3 (1.2-5.4); Lymphocytes % (Auto) 18.5 % (13.4-35.0); Mean Corpuscular HGB Conc 33 % (32-34); Mean Corpuscular Volume 81 fl (84-94); Monocytes % (Auto) 8.9 % (0.0-7.3); Platelet Count 207 K/mm3 (140-440); Red Blood Count 4.57 M/mm3 (3.65-5.03); Red Cell Distribution Width 14.4 % (13.2-15.2)
--- NOTE | 2021-11-23 10:57 | Progress Note ---
Assessment and Plan in the chair urine blodd tinged clearing opened nt no sig heme or drainage labs noted keep mckeon x 24 hrs Subjective Date of service: 11/23/21 Objective - Constitutional Vitals: Vital Signs - 12hr 11/23/21 11/23/21 11/23/21 04:53 06:02 07:02 Temperature 97.6 F Pulse Rate 90 Respiratory 16 18 18 Rate Blood Pressure 154/94 O2 Sat by Pulse 95 Oximetry General appearance: Present: no acute distress - Neck Neck: supple - Respiratory Respiratory effort: normal Extremities: no ischemia - Gastrointestinal General gastrointestinal: Present: soft, non-tender - Labs CBC & Chem 7: 11/23/21 10:02 Labs: Abnormal lab results 11/22/21 11/22/21 11/23/21 Range/Units 17:38 22:07 10:02 WBC 11.1 H (4.5-11.0) K/mm3 MCV 81 L (84-94) fl MCH 26 L (28-32) pg Beckham % (Auto) 8.9 H (0.0-7.3) % Beckham # (Auto) 1.0 H (0.0-0.8) K/mm3 Seg Neutrophils % 71.7 H (40.0-70.0) % Seg Neutrophils # 8.0 H (1.8-7.7) K/mm3 POC Glucose 196 H 220 H (70-105) mg/dL Medications & Allergies - Medications Allergies/Adverse Reactions: Allergies No Known Allergies Allergy (Verified 02/06/15 13:25) Home Medications: Home Medications Medication Instructions Recorded Confirmed Last Taken Type Apixaban [Eliquis] 5 mg PO BID 05/03/21 11/18/21 11/11/21 History Aspirin 81 mg PO QDAY 05/03/21 11/18/21 11/11/21 History Atorvastatin [Lipitor Tab] 80 mg PO QHS 05/03/21 11/18/21 11/21/21 History Escitalopram [Lexapro] 10 mg PO DAILY 05/03/21 11/18/21 11/21/21 History Multivit-Min/FA/Lycopen/Lutein 1 each PO DAILY 05/03/21 11/18/21 05/06/21 History [Centrum Silver Tablet] 1 tab Tamsulosin [Flomax] 0.4 mg PO QDAY 05/03/21 11/18/21 11/21/21 History carvediloL [Coreg] 6.25 mg PO BID 05/03/21 11/18/21 11/21/21 History metFORMIN [Glucophage] 500 mg PO BID 05/03/21 11/22/21 11/20/21 History Eszopiclone [Lunesta] 3 mg PO QHS 05/05/21 11/18/21 11/21/21 History amLODIPine 10 mg PO DAILY 05/10/21 11/22/21 11/21/21 History Losartan [Cozaar] 50 mg PO QDAY 05/25/21 11/18/21 11/21/21 History oxyCODONE /ACETAMINOPHEN [Percocet 1 tab PO Q4HR PRN #30 tab 11/18/21 11/18/21 Unknown Rx 5/325] Active Medications: Generic Name Dose Route Start Last Admin Trade Name Freq PRN Reason Stop Dose Admin Acetaminophen 650 mg 11/22/21 14:00 Acetaminophen 325 Mg Tab PO Q4H PRN Pain MILD(1-3)/Fever >100.5/LERNER Amlodipine Besylate 10 mg 11/23/21 10:00 11/23/21 10:24 Amlodipine 10 Mg Tab PO 10 mg DAILY MERLE Administration Atorvastatin Calcium 80 mg 11/23/21 22:00 Atorvastatin 40 Mg Tab PO QHS MERLE Carvedilol 6.25 mg 11/23/21 08:00 11/23/21 10:26 Carvedilol 6.25 Mg Tab PO 6.25 mg BID@0800,1700 MERLE Administration Escitalopram Oxalate 10 mg 11/23/21 10:00 11/23/21 10:23 Escitalopram 10 Mg Tab PO 10 mg DAILY MERLE Administration Lactated Ringer's 1,000 mls @ 100 mls/hr 11/22/21 09:00 11/23/21 06:01 Lactated Ringers IV 100 mls/hr DIRECT MERLE Administration Insulin Human Lispro 0 unit 11/22/21 22:00 11/23/21 10:24 Insulin Lispro 100 Unit/Ml SUB-Q Not Given ACHS MERLE Protocol Losartan Potassium 50 mg 11/23/21 10:00 11/23/21 10:24 Losartan 50 Mg Tab PO 50 mg QDAY MERLE Administration Metformin HCl 500 mg 11/23/21 08:00 11/23/21 10:25 Metformin 500 Mg Tab PO 500 mg BIDDIAB MERLE Administration Oxycodone/Acetaminophen 1 tab 11/23/21 05:37 11/23/21 10:42 Oxycodone /Acetaminophen 5-325mg Tab PO 1 tab Q4H PRN Administration Pain, Moderate (4-6) Tamsulosin HCl 0.4 mg 11/23/21 10:00 11/23/21 10:24 Tamsulosin 0.4 Mg Cap PO 0.4 mg QDAY MERLE Administration Tramadol HCl 50 mg 11/22/21 14:00 11/23/21 06:02 Tramadol 50 Mg Tab PO 50 mg Q6H PRN Administration Pain, Moderate (4-6) Zolpidem Tartrate 5 mg 11/22/21 22:00 Zolpidem 5 Mg Tab PO QHS PRN Sleep
[2021-11-23 11:03] LABS: BUN/Creatinine Ratio 12; Blood Urea Nitrogen 13 mg/dL (9-20)
[2021-11-23 11:04] LABS: Alanine Aminotransferase 20 units/L (7-56); Albumin 3.6 g/dL (3.9-5); Hemolysis Index 4
--- NOTE | 2021-11-23 13:59 | Post Anesthesia Evaluation ---
- Post Anesthesia Evaluation Patient Participated: Yes Airway Patent: Yes Stable Respiratory Function: Yes Nausea/Vomiting: No Temp > 96.8F: Yes Pain Manageable: Yes Adequeate Hydration: Yes Anesthesia Complications: No Patient on Ventilator: No
[2021-11-23] MEDS ORDERED: ESZOPICLONE 3 MG PO SCH (22:00)
[2021-11-24] MEDS: LACTATED RINGERS 1,000 ML IV SCH (01:26)
--- NOTE | 2021-11-24 05:17 | Progress Note ---
Assessment and Plan Assessment and plan: Patient is s/p left kidney stone removal. Patient is doing well postop. Patient complains of no urination for the last 6 hours prior to my seeing him. Informed nursing staff to put a straight cath. No fever or chills. Patient has a history of diabetes. S/p percutaneous nephrostomy and placement of left ureteral stents. (1) large renal calculus, left Current Visit: Yes Status: Acute Plan to address problem: S/p left percutaneous nephrostomy, lithotripsy and ureteral stent placement on 11/22 Nephrostomy catheters not connected to a bag. Not draining. Postop, Silveira in place draining bloody urinehematuria improving per urology. Postop, hemodynamically stable with unremarkable CBC, creatinine and CMP. Discharge as per urology. (2) Urinary retention Current Visit: Yes Status: Acute Plan to address problem: Postop, Silveira in place (3) HLD (hyperlipidemia) Current Visit: No Status: Chronic Qualifiers: Hyperlipidemia type: mixed hyperlipidemia Qualified Code(s): E78.2 - Mixed hyperlipidemia Plan to address problem: Continue Lipitor (4) Hypertension Current Visit: Yes Status: Chronic Qualifiers: Hypertension type: primary hypertension Qualified Code(s): I10 - Essential (primary) hypertension Plan to address problem: Continue antihypertensives in the form of Coreg and amlodipine (5) T2DM (type 2 diabetes mellitus) Current Visit: Yes Status: Chronic Qualifiers: Diabetes mellitus intermediate manager insulin use: without intermediate manager use Plan to address problem: Continue Metformin and Accu-Cheks with coverage (6) BPH (benign prostatic hyperplasia) Current Visit: Yes Status: Chronic Qualifiers: Lower urinary tract symptom presence: symptoms present Plan to address problem: Continue Flomax (7) DVT prophylaxis Current Visit: Yes Status: Acute Plan to address problem: Patient on SCDs and GI prophylaxis Discussed with the patient and the nursing staff. History Interval history: Patient is lying flat in bed alert and oriented. Patient is anxious stating that he cannot urinate with a Silveira catheter in place and urine looking bloodyimproving as per urology note. Left nephrostomy/Silveira catheter in place. Not connected to a bag. Afebrile with stable vital signs. Chemistry/creatinine normal. Hospitalist Physical - Constitutional Vitals: Temp Pulse Resp BP Pulse Ox 99.1 F 83 18 122/73 96 11/23/21 21:00 11/23/21 22:00 11/23/21 22:00 11/23/21 21:00 11/23/21 22:00 General appearance: Present: no acute distress, other (Alert/oriented but anxious.) - EENT Eyes: Present: PERRL, EOM intact ENT: clear oral mucosa - Neck Neck: Present: supple - Respiratory Respiratory effort: normal Respiratory: bilateral: CTA - Cardiovascular Rhythm: regular - Extremities Extremities: No edema - Abdominal General gastrointestinal: soft, non-tender, non-distended, normal bowel sounds - Integumentary Integumentary: Absent: rash - Psychiatric Psychiatric: other (Anxious) - Neurologic Neurologic: no focal deficits, moves all extremities Results - Labs CBC & Chem 7: 11/23/21 10:02 11/23/21 10:02 Labs: Laboratory Last Values WBC 11.1 K/mm3 (4.5-11.0) H 11/23/21 10:02 RBC 4.57 M/mm3 (3.65-5.03) 11/23/21 10:02 Hgb 12.1 gm/dl (11.8-15.2) 11/23/21 10:02 Hct 37.1 % (35.5-45.6) 11/23/21 10:02 MCV 81 fl (84-94) L 11/23/21 10:02 MCH 26 pg (28-32) L 11/23/21 10:02 MCHC 33 % (32-34) 11/23/21 10:02 RDW 14.4 % (13.2-15.2) 11/23/21 10:02 Plt Count 207 K/mm3 (140-440) 11/23/21 10:02 Lymph % (Auto) 18.5 % (13.4-35.0) 11/23/21 10:02 [place] % (Auto) 8.9 % (0.0-7.3) H 11/23/21 10:02 Eos % (Auto) 0.6 % (0.0-4.3) 11/23/21 10:02 Baso % (Auto) 0.3 % (0.0-1.8) 11/23/21 10:02 Lymph # (Auto) 2.1 K/mm3 (1.2-5.4) 11/23/21 10:02 [place] # (Auto) 1.0 K/mm3 (0.0-0.8) H 11/23/21 10:02 Eos # (Auto) 0.1 K/mm3 (0.0-0.4) 11/23/21 10:02 Baso # (Auto) 0.0 K/mm3 (0.0-0.1) 11/23/21 10:02 Seg Neutrophils % 71.7 % (40.0-70.0) H 11/23/21 10:02 Seg Neutrophils # 8.0 K/mm3 (1.8-7.7) H 11/23/21 10:02 Sodium 138 mmol/L (137-145) 11/23/21 10:02 Potassium 4.3 mmol/L (3.6-5.0) 11/23/21 10:02 Chloride 100.6 mmol/L (98-107) 11/23/21 10:02 Carbon Dioxide 26 mmol/L (22-30) 11/23/21 10:02 Anion Gap 16 mmol/L 11/23/21 10:02 BUN 13 mg/dL (9-20) 11/23/21 10:02 Creatinine 1.1 mg/dL (0.8-1.3) 11/23/21 10:02 Estimated GFR > 60 ml/min 11/23/21 10:02 BUN/Creatinine Ratio 12 % 11/23/21 10:02 Glucose 260 mg/dL (75-100) H 11/23/21 10:02 POC Glucose 203 mg/dL (70-105) H 11/23/21 21:11 Calcium 10.0 mg/dL (8.4-10.2) 11/23/21 10:02 Total Bilirubin 0.40 mg/dL (0.1-1.2) 11/23/21 10:02 AST 18 units/L (5-40) 11/23/21 10:02 ALT 20 units/L (7-56) 11/23/21 10:02 Alkaline Phosphatase 107 units/L (35-129) 11/23/21 10:02 Total Protein 5.9 g/dL (6.3-8.2) L 11/23/21 10:02 Albumin 3.6 g/dL (3.9-5) L 11/23/21 10:02 Albumin/Globulin Ratio 1.6 % 11/23/21 10:02 SARS-CoV-2 (PCR) Negative (Negative) 11/18/21 12:20 Blood Type A POSITIVE 11/22/21 08:41 Antibody Screen Negative 11/22/21 08:41 Crossmatch See Detail 11/22/21 08:41 Silveira/IV: Voiding Method Indwelling Catheter Active Medications - Current Medications Current Medications: Generic Name Dose Route Start Last Admin Trade Name Freq PRN Reason Stop Dose Admin Acetaminophen 650 mg 11/22/21 14:00 Acetaminophen 325 Mg Tab PO Q4H PRN Pain MILD(1-3)/Fever >100.5/LERNER Amlodipine Besylate 10 mg 11/23/21 10:00 11/23/21 10:24 Amlodipine 10 Mg Tab PO 10 mg DAILY MERLE Administration Atorvastatin Calcium 80 mg 11/23/21 22:00 11/23/21 21:18 Atorvastatin 40 Mg Tab PO 80 mg QHS MERLE Administration Carvedilol 6.25 mg 11/23/21 08:00 11/23/21 17:02 Carvedilol 6.25 Mg Tab PO 6.25 mg BID@0800,1700 MERLE Administration Escitalopram Oxalate 10 mg 11/23/21 10:00 11/23/21 10:23 Escitalopram 10 Mg Tab PO 10 mg DAILY MERLE Administration Lactated Ringer's 1,000 mls @ 100 mls/hr 11/22/21 09:00 11/24/21 01:26 Lactated Ringers IV 100 mls/hr DIRECT MERLE Administration Insulin Human Lispro 0 unit 11/22/21 22:00 11/23/21 21:19 Insulin Lispro 100 Unit/Ml SUB-Q 4 unit ACHS MERLE Administration Protocol Losartan Potassium 50 mg 11/23/21 10:00 11/23/21 10:24 Losartan 50 Mg Tab PO 50 mg QDAY MERLE Administration Metformin HCl 500 mg 11/23/21 08:00 11/23/21 17:02 Metformin 500 Mg Tab PO 500 mg BIDDIAB MERLE Administration Oxycodone/Acetaminophen 1 tab 11/23/21 05:37 11/23/21 18:55 Oxycodone /Acetaminophen 5-325mg Tab PO 1 tab Q4H PRN Administration Pain, Moderate (4-6) Tamsulosin HCl 0.4 mg 11/23/21 10:00 11/23/21 10:24 Tamsulosin 0.4 Mg Cap PO 0.4 mg QDAY MERLE Administration Tramadol HCl 50 mg 11/22/21 14:00 11/23/21 06:02 Tramadol 50 Mg Tab PO 50 mg Q6H PRN Administration Pain, Moderate (4-6) Zolpidem Tartrate 5 mg 11/22/21 22:00 Zolpidem 5 Mg Tab PO QHS PRN Sleep
[2021-11-24] MEDS: oxyCODONE /ACETAMINOPHEN 5-325MG TAB PO PRN (05:32)
[2021-11-24 06:52] VITALS: BP 148/90
[2021-11-24] MEDS: ESCITALOPRAM 10 MG TAB PO SCH (09:10)
[2021-11-24] MEDS: amLODIPine 10 MG TAB PO SCH (09:10)
[2021-11-24] MEDS: carvediloL 6.25 MG TAB PO SCH (09:11)
[2021-11-24] MEDS: TAMSULOSIN 0.4 MG CAP PO SCH (09:11)
[2021-11-24] MEDS: metFORMIN 500 MG TAB PO SCH (09:11)
--- NOTE | 2021-11-24 10:11 | Progress Note ---
Subjective Date of service: 11/24/21 Objective - Constitutional Vitals: Vital Signs - 12hr 11/24/21 11/24/21 11/24/21 04:57 05:32 06:32 Temperature 98.6 F Pulse Rate 98 H Respiratory 18 18 20 Rate Blood Pressure 148/90 O2 Sat by Pulse 91 Oximetry 11/24/21 08:00 Temperature Pulse Rate Respiratory Rate Blood Pressure O2 Sat by Pulse 100 Oximetry General appearance: Present: no acute distress - Neck Neck: supple Extremities: no ischemia - Gastrointestinal General gastrointestinal: Present: soft, non-tender - Labs CBC & Chem 7: 11/23/21 10:02 11/23/21 10:02 Labs: Abnormal lab results 11/22/21 11/23/21 11/23/21 Range/Units 08:41 10:02 10:02 WBC 11.1 H (4.5-11.0) K/mm3 MCV 81 L (84-94) fl MCH 26 L (28-32) pg [place] % (Auto) 8.9 H (0.0-7.3) % [place] # (Auto) 1.0 H (0.0-0.8) K/mm3 Seg Neutrophils % 71.7 H (40.0-70.0) % Seg Neutrophils # 8.0 H (1.8-7.7) K/mm3 Glucose 260 H (75-100) mg/dL POC Glucose (70-105) mg/dL Total Protein 5.9 L (6.3-8.2) g/dL Albumin 3.6 L (3.9-5) g/dL Crossmatch See Detail 11/23/21 11/23/21 11/23/21 Range/Units 11:04 15:59 21:11 WBC (4.5-11.0) K/mm3 MCV (84-94) fl MCH (28-32) pg [place] % (Auto) (0.0-7.3) % [place] # (Auto) (0.0-0.8) K/mm3 Seg Neutrophils % (40.0-70.0) % Seg Neutrophils # (1.8-7.7) K/mm3 Glucose (75-100) mg/dL POC Glucose 217 H 147 H 203 H (70-105) mg/dL Total Protein (6.3-8.2) g/dL Albumin (3.9-5) g/dL Crossmatch 11/24/21 Range/Units 07:21 WBC (4.5-11.0) K/mm3 MCV (84-94) fl MCH (28-32) pg [place] % (Auto) (0.0-7.3) % [place] # (Auto) (0.0-0.8) K/mm3 Seg Neutrophils % (40.0-70.0) % Seg Neutrophils # (1.8-7.7) K/mm3 Glucose (75-100) mg/dL POC Glucose 131 H (70-105) mg/dL Total Protein (6.3-8.2) g/dL Albumin (3.9-5) g/dL Crossmatch Medications & Allergies - Medications Allergies/Adverse Reactions: Allergies No Known Allergies Allergy (Verified 11/23/21 12:56) Home Medications: Home Medications Medication Instructions Recorded Confirmed Last Taken Type Apixaban [Eliquis] 5 mg PO BID 05/03/21 11/18/21 11/11/21 History Aspirin 81 mg PO QDAY 05/03/21 11/18/21 11/11/21 History Atorvastatin [Lipitor Tab] 80 mg PO QHS 05/03/21 11/18/21 11/21/21 History Escitalopram [Lexapro] 10 mg PO DAILY 05/03/21 11/18/21 11/21/21 History Multivit-Min/FA/Lycopen/Lutein 1 each PO DAILY 05/03/21 11/18/21 05/06/21 History [Centrum Silver Tablet] 1 tab Tamsulosin [Flomax] 0.4 mg PO QDAY 05/03/21 11/18/21 11/21/21 History carvediloL [Coreg] 6.25 mg PO BID 05/03/21 11/18/21 11/21/21 History metFORMIN [Glucophage] 500 mg PO BID 05/03/21 11/22/21 11/20/21 History Eszopiclone [Lunesta] 3 mg PO QHS 05/05/21 11/18/21 11/21/21 History amLODIPine 10 mg PO DAILY 05/10/21 11/22/21 11/21/21 History Losartan [Cozaar] 50 mg PO QDAY 05/25/21 11/18/21 11/21/21 History oxyCODONE /ACETAMINOPHEN [Percocet 1 tab PO Q4HR PRN #30 tab 11/18/21 11/18/21 Unknown Rx 5/325] Active Medications: Generic Name Dose Route Start Last Admin Trade Name Freq PRN Reason Stop Dose Admin Acetaminophen 650 mg 11/22/21 14:00 Acetaminophen 325 Mg Tab PO Q4H PRN Pain MILD(1-3)/Fever >100.5/LERNER Amlodipine Besylate 10 mg 11/23/21 10:00 11/24/21 09:10 Amlodipine 10 Mg Tab PO 10 mg DAILY MERLE Administration Atorvastatin Calcium 80 mg 11/23/21 22:00 11/23/21 21:18 Atorvastatin 40 Mg Tab PO 80 mg QHS MERLE Administration Carvedilol 6.25 mg 11/23/21 08:00 11/24/21 09:11 Carvedilol 6.25 Mg Tab PO 6.25 mg BID@0800,1700 MERLE Administration Escitalopram Oxalate 10 mg 11/23/21 10:00 11/24/21 09:10 Escitalopram 10 Mg Tab PO 10 mg DAILY MERLE Administration Lactated Ringer's 1,000 mls @ 100 mls/hr 11/22/21 09:00 11/24/21 01:26 Lactated Ringers IV 100 mls/hr DIRECT MERLE Administration Insulin Human Lispro 0 unit 11/22/21 22:00 11/23/21 21:19 Insulin Lispro 100 Unit/Ml SUB-Q 4 unit ACHS MERLE Administration Protocol Losartan Potassium 50 mg 11/23/21 10:00 11/23/21 10:24 Losartan 50 Mg Tab PO 50 mg QDAY MERLE Administration Metformin HCl 500 mg 11/23/21 08:00 11/24/21 09:11 Metformin 500 Mg Tab PO 500 mg BIDDIAB MERLE Administration Oxycodone/Acetaminophen 1 tab 11/23/21 05:37 11/24/21 05:32 Oxycodone /Acetaminophen 5-325mg Tab PO 1 tab Q4H PRN Administration Pain, Moderate (4-6) Tamsulosin HCl 0.4 mg 11/23/21 10:00 11/24/21 09:11 Tamsulosin 0.4 Mg Cap PO 0.4 mg QDAY MERLE Administration Tramadol HCl 50 mg 11/22/21 14:00 11/23/21 06:02 Tramadol 50 Mg Tab PO 50 mg Q6H PRN Administration Pain, Moderate (4-6) Zolpidem Tartrate 5 mg 11/22/21 22:00 Zolpidem 5 Mg Tab PO QHS PRN Sleep
--- NOTE | 2021-11-24 10:15 | Discharge Summary ---
Short Stay Discharge Plan Activity: other (no straining ) Diet: low fat, low cholesterol, low salt Durable Medical Equipment Needed Upon Discharge: other (left perc tube ) Follow up with: RENEE FOSTER MD [Primary Care Provider] - 7 Days PEPE HARRIS MD [Staff Physician] - 7 Days
--- NOTE | 2021-11-24 21:20 | Progress Note ---
Assessment and Plan Assessment and plan: Patient is s/p left kidney stone removal. Patient is doing well postop. Patient complains of no urination for the last 6 hours prior to my seeing him. Informed nursing staff to put a straight cath. No fever or chills. Patient has a history of diabetes. S/p percutaneous nephrostomy and placement of left ureteral stents. (1) large renal calculus, left Current Visit: Yes Status: Acute Plan to address problem: S/p left percutaneous nephrostomy, lithotripsy and ureteral stent placement on 11/22 Nephrostomy catheters not connected to a bag. Not draining. Silveira catheter removed and patient reports resolution of hematuria. Patient reports no problem with voiding/emptying bladder. No dysuria. Postop, hemodynamically stable with unremarkable CBC, creatinine and CMP. Patient is being discharged by urology today for outpatient follow-up with indwelling nephrostomy catheter. (2) Urinary retention Current Visit: Yes Status: Acute Plan to address problem: Postop, Silveira in place (3) HLD (hyperlipidemia) Current Visit: No Status: Chronic Qualifiers: Hyperlipidemia type: mixed hyperlipidemia Qualified Code(s): E78.2 - Mixed hyperlipidemia Plan to address problem: Continue Lipitor (4) Hypertension Current Visit: Yes Status: Chronic Qualifiers: Hypertension type: primary hypertension Qualified Code(s): I10 - Essential (primary) hypertension Plan to address problem: Continue antihypertensives in the form of Coreg and amlodipine (5) T2DM (type 2 diabetes mellitus) Current Visit: Yes Status: Chronic Qualifiers: Diabetes mellitus halfway insulin use: without halfway use Plan to address problem: Continue Metformin and Accu-Cheks with coverage (6) BPH (benign prostatic hyperplasia) Current Visit: Yes Status: Chronic Qualifiers: Lower urinary tract symptom presence: symptoms present Plan to address problem: Continue Flomax (7) DVT prophylaxis Current Visit: Yes Status: Acute Plan to address problem: Patient on SCDs and GI prophylaxis Discussed with the patient and the nursing staff. History Interval history: Patient is being discharged by urology. Silveira catheter was discontinued this morning and patient reports no problem with the urine stream. Patient reports resolution of hematuria. No dysuria. Percutaneous nephrostomy catheter in place and will not be removed as per urology. Vital signs stable. Patient has no complaints. Hospitalist Physical - Constitutional Vitals: Temp Pulse Resp BP Pulse Ox 98.6 F 98 H 20 148/90 100 11/24/21 04:57 11/24/21 04:57 11/24/21 06:32 11/24/21 04:57 11/24/21 08:00 General appearance: Present: no acute distress - EENT Eyes: Present: PERRL ENT: clear oral mucosa - Neck Neck: Present: supple - Respiratory Respiratory effort: normal Respiratory: bilateral: CTA - Cardiovascular Rhythm: regular - Extremities Extremities: No edema - Abdominal General gastrointestinal: soft, non-tender, normal bowel sounds - Integumentary Integumentary: Absent: rash - Psychiatric Psychiatric: appropriate mood/affect - Neurologic Neurologic: no focal deficits, moves all extremities Results - Labs CBC & Chem 7: 11/23/21 10:02 11/23/21 10:02 Labs: Laboratory Last Values WBC 11.1 K/mm3 (4.5-11.0) H 11/23/21 10:02 RBC 4.57 M/mm3 (3.65-5.03) 11/23/21 10:02 Hgb 12.1 gm/dl (11.8-15.2) 11/23/21 10:02 Hct 37.1 % (35.5-45.6) 11/23/21 10:02 MCV 81 fl (84-94) L 11/23/21 10:02 MCH 26 pg (28-32) L 11/23/21 10:02 MCHC 33 % (32-34) 11/23/21 10:02 RDW 14.4 % (13.2-15.2) 11/23/21 10:02 Plt Count 207 K/mm3 (140-440) 11/23/21 10:02 Lymph % (Auto) 18.5 % (13.4-35.0) 11/23/21 10:02 [place] % (Auto) 8.9 % (0.0-7.3) H 11/23/21 10:02 Eos % (Auto) 0.6 % (0.0-4.3) 11/23/21 10:02 Baso % (Auto) 0.3 % (0.0-1.8) 11/23/21 10:02 Lymph # (Auto) 2.1 K/mm3 (1.2-5.4) 11/23/21 10:02 [place] # (Auto) 1.0 K/mm3 (0.0-0.8) H 11/23/21 10:02 Eos # (Auto) 0.1 K/mm3 (0.0-0.4) 11/23/21 10:02 Baso # (Auto) 0.0 K/mm3 (0.0-0.1) 11/23/21 10:02 Seg Neutrophils % 71.7 % (40.0-70.0) H 11/23/21 10:02 Seg Neutrophils # 8.0 K/mm3 (1.8-7.7) H 11/23/21 10:02 Sodium 138 mmol/L (137-145) 11/23/21 10:02 Potassium 4.3 mmol/L (3.6-5.0) 11/23/21 10:02 Chloride 100.6 mmol/L (98-107) 11/23/21 10:02 Carbon Dioxide 26 mmol/L (22-30) 11/23/21 10:02 Anion Gap 16 mmol/L 11/23/21 10:02 BUN 13 mg/dL (9-20) 11/23/21 10:02 Creatinine 1.1 mg/dL (0.8-1.3) 11/23/21 10:02 Estimated GFR > 60 ml/min 11/23/21 10:02 BUN/Creatinine Ratio 12 % 11/23/21 10:02 Glucose 260 mg/dL (75-100) H 11/23/21 10:02 POC Glucose 131 mg/dL (70-105) H 11/24/21 07:21 Calcium 10.0 mg/dL (8.4-10.2) 11/23/21 10:02 Total Bilirubin 0.40 mg/dL (0.1-1.2) 11/23/21 10:02 AST 18 units/L (5-40) 11/23/21 10:02 ALT 20 units/L (7-56) 11/23/21 10:02 Alkaline Phosphatase 107 units/L (35-129) 11/23/21 10:02 Total Protein 5.9 g/dL (6.3-8.2) L 11/23/21 10:02 Albumin 3.6 g/dL (3.9-5) L 11/23/21 10:02 Albumin/Globulin Ratio 1.6 % 11/23/21 10:02 SARS-CoV-2 (PCR) Negative (Negative) 11/18/21 12:20 Blood Type A POSITIVE 11/22/21 08:41 Antibody Screen Negative 11/22/21 08:41 Crossmatch See Detail 11/22/21 08:41 Silveira/IV: Voiding Method Indwelling Catheter
== END 2021-11-24 13:30 | disposition still patient (30) ==
LOC: OR 07:20 → 3A 12:52
PROVIDERS: ADMIT Urology; ATTEND Urology
DX: N20.0 Calculus of kidney (principal); Z20.822 Contact with and (suspected) exposure to COVID-19; N52.9 Male erectile dysfunction, unspecified; N39.0 Urinary tract infection, site not specified; I10 Essential (primary) hypertension; N40.0 Benign prostatic hyperplasia without lower urinary tract symptoms; E11.9 Type 2 diabetes mellitus without complications; E78.5 Hyperlipidemia, unspecified; R33.9 Retention of urine, unspecified; R11.2 Nausea with vomiting, unspecified; Z79.82 Long term (current) use of aspirin; Z79.84 Long term (current) use of oral hypoglycemic drugs; Z87.442 Personal history of urinary calculi; Z79.899 Other long term (current) drug therapy; Z98.890 Other specified postprocedural states; Z79.4 Long term (current) use of insulin
CPT/HCPCS: 36415; 50081; 50431; 52332; 74485; 80053; 82962; 85014; 85018; 85025; 86850; 86900; 86901; 86920; C1726; C1769; C2617; G0378; J0690; J1100; J1170; J1815; J1940; J2405; J2704; J2710; J3010; J3490; J7120; Q9967; U0003; 96372

== ENCOUNTER 2021-12-29 11:20 | Day surgery (SDC) | payer OTHER ==
[2021-12-29] MEDS ORDERED: LACTATED RINGERS 1,000 ML ONE (11:50)
[2021-12-29] MEDS ORDERED: LACTATED RINGERS 1,000 ML IV SCH (12:00)
[2021-12-29] MEDS ORDERED: ceFAZolin/Water 2 GM/20 ML 2 GM/20 ML SYRINGE IV ONE (12:18)
--- NOTE | 2021-12-29 12:46 | Anesthesia Day of Surgery ---
Anesthesia Day of Surgery - Day of Surgery Patient Examined: Yes Patient H&P Reviewed: Yes Patient is NPO: Yes
[2021-12-29 12:48] LABS: Hematocrit 33.5 % (35.5-45.6); Hemoglobin 11.6 gm/dl (11.8-15.2); Mean Corpuscular HGB Conc 35 % (32-34); Mean Corpuscular Volume 80 fl (84-94); Platelet Count 301 K/mm3 (140-440); Red Blood Count 4.18 M/mm3 (3.65-5.03); Red Cell Distribution Width 13.9 % (13.2-15.2)
--- NOTE | 2021-12-29 12:52 | Anesthesia Consultation ---
Anesthesia Consult and Med Hx Date of service: 12/29/21 - Airway Anesthetic Teeth Evaluation: Chipped (LOOSE upper left. 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 H factor V leiden currently on Eliquis and ASA. States that he has had preop hematology eval last year.
[2021-12-29 12:58] LABS: INR 0.97 (0.87-1.13)
[2021-12-29 12:59] LABS: Partial Thromboplastin Time 29.2 Sec. (24.2-36.6)
[2021-12-29] MEDS ORDERED: MIDAZOLAM 2 MG/2 ML INJ IV NR (13:00)
[2021-12-29] MEDS ORDERED: ceFAZolin/STERILE WATER 2 GM/20 ML SYRINGE IV NR (14:00)
[2021-12-29] MEDS ORDERED: MINERAL OIL Light (Sterile) 10 ML VIAL TP ONE ×2 (14:04→15:19)
[2021-12-29] MEDS ORDERED: dexAMETHasone 20 MG/5 ML VIAL ONE (14:11)
[2021-12-29] MEDS ORDERED: fentaNYL 100 MCG/2 ML INJ ONE (14:11)
[2021-12-29] MEDS ORDERED: propofoL 200 MG/20 ML VIAL IV ONE (14:11)
[2021-12-29] MEDS ORDERED: ROCURONIUM 50 MG/5 ML INJ IV ONE (14:11)
[2021-12-29] MEDS ORDERED: ONDANSETRON 4 MG/2 ML INJ ONE (14:11)
[2021-12-29] MEDS ORDERED: LIDOCAINE MPF (2%) 20 MG/1 ML VIAL 5 ML ONE (14:11)
[2021-12-29] MEDS ORDERED: SODIUM CHLORIDE 0.9% 500 ML 500 ML IV SCH (14:27)
[2021-12-29] MEDS ORDERED: MINERAL OIL/PETROLATUM, WHITE OPHTH OINT 3.5 GM ONE (14:53)
[2021-12-29] MEDS ORDERED: ePHEDrine SULFATE 50 MG/1 ML INJ ONE (15:10)
[2021-12-29] MEDS ORDERED: SODIUM CHLORIDE 0.9% IRRIG SOLN 2000 ML IR ONE (15:19)
[2021-12-29] MEDS ORDERED: WATER FOR IRRIG STERILE 1,500 ML BOTTLE IR ONE (15:19)
[2021-12-29] MEDS ORDERED: KETOROLAC 30 MG/1 ML INJ ONE (15:32)
[2021-12-29] MEDS ORDERED: GLYCOPYRROLATE 0.4 MG/2 ML INJ ONE (15:44)
[2021-12-29] MEDS ORDERED: NEOSTIGMINE 10MG/10 ML INJ MDV ONE (15:44)
--- NOTE | 2021-12-29 16:17 | Discharge Summary ---
Short Stay Discharge Plan Activity: other (no straining ) Weight Bearing Status: Full Weight Bearing Diet: low fat, low cholesterol, low salt Special Instructions: other (inc fluids ) Durable Medical Equipment Needed Upon Discharge: other (neph tube ) Follow up with: RENEE FOSTER MD [Primary Care Provider] - 7 Days PEPE HARRIS MD [Staff Physician] - 7 Days
--- NOTE | 2021-12-29 16:18 | Post Operative Note ---
Date of procedure: 12/29/21 Pre-op diagnosis: left stones Post-op diagnosis: same Procedure: left perc Anesthesia: LUISA Surgeon: PEPE HARRIS Estimated blood loss: none Pathology: none Condition: stable Disposition: PACU
--- NOTE | 2021-12-29 16:57 | Fluoroscopy Report ---
INTRAOPERATIVE FLUOROSCOPY: ABDOMEN INDICATION: LEFT KIDNEY STONES.. TECHNIQUE: Intraoperative spot images were obtained during the procedure. FINDINGS: Submitted imaging demonstrates retrograde and antegrade access of the left kidney for percutaneous ne phrolithotomy. Please see the operative report for further details. Fluoroscopy Time: 0.6 minutes. Fluoroscopy Images: 5. Signer Name: Alexis Mcmahon MD Signed: 12/29/2021 4:52 PM Workstation Name: [id number]
--- NOTE | 2021-12-29 17:05 | Operative Report ---
DATE OF SURGERY: 12/29/2021 PREOPERATIVE DIAGNOSIS: Huge bilateral staghorn calculi. POSTOPERATIVE DIAGNOSIS: Huge bilateral staghorn calculi. PROCEDURES: Left second-look percutaneous nephrolithotomy. SURGEON: Nir Brannon MD ANESTHESIA: General. FINDINGS: This is a gentleman who had a huge stone in the left kidney. He has a stone in a pocket in the upper pole as well. He now presents for a second look. DESCRIPTION OF PROCEDURE: The patient was brought to operating room and placed on the operating table. Following induction of anesthesia, placed in the prone position, prepped and draped in usual sterile fashion. Flexible and rigid nephroscopy showed the stone in the roseann. There were some other small stones, which were evacuated out. There was a piece of the stone that was hanging out from that roseann, so we lasered that. We did not want to disturb this huge stone because we could only access it with a small fiber and a flexible scope. The rigid scope would no way torque and get up there and also, the lithoclast, even though it was fixed, was not working, so we did not want to take a chance: 1. To torque and rip the kidney. 2. It was not going to work. Besides that, it was in a pocket and it is not disturbing him. If he needs treatment, it will have to come from a perc through that roseann. The patient tolerated the procedure well. Stent was left in, it will be removed in about a week. He was brought to recovery in stable condition. TID: [id number] RECEIPT: [id number] GIOVANNA/AD
[2021-12-29 18:50] VITALS: BP 135/70
== END 2021-12-29 17:25 | disposition home or self-care (01) ==
LOC: OR 11:20
PROVIDERS: ATTEND Urology
DX: N20.0 Calculus of kidney (principal); D66 Hereditary factor VIII deficiency; E78.5 Hyperlipidemia, unspecified; I10 Essential (primary) hypertension; E66.9 Obesity, unspecified; M19.90 Unspecified osteoarthritis, unspecified site; F31.9 Bipolar disorder, unspecified; F41.9 Anxiety disorder, unspecified; G43.109 Migraine with aura, not intractable, without status migrainosus; Z79.899 Other long term (current) drug therapy; Z79.84 Long term (current) use of oral hypoglycemic drugs; Z98.890 Other specified postprocedural states; Z87.440 Personal history of urinary (tract) infections; Z82.49 Family history of ischemic heart disease and other diseases of the circulatory system; Z86.73 Personal history of transient ischemic attack (TIA), and cerebral infarction without residual deficits
CPT/HCPCS: 36415; 50080; 50431; 85027; 85610; 85730; 86850; 86900; 86901; 86920; C1769; J0690; J1100; J1815; J1885; J2250; J2405; J2704; J2710; J3010; J3490; J7120; Q9967